=== PATIENT | female | born 1955 | race Caucasian/White ===

== ENCOUNTER → 2019-09-04 12:43 | Outpatient (BNVA) | payer MEDICARE, OTHER, SELFPAY | PROVIDERS: Family Provider Internal Medicine; PCP Internal Medicine; Visit Provider Obstetrics & Gynecology | DX: R87.619 Unspecified abnormal cytological findings in specimens from cervix uteri (principal) | CPT/HCPCS: 88175 ==

== ENCOUNTER → 2019-10-03 09:43 | Outpatient (BNVA) | payer MEDICARE, OTHER, SELFPAY | PROVIDERS: Family Provider Internal Medicine; PCP Internal Medicine; Visit Provider Obstetrics & Gynecology | DX: R87.619 Unspecified abnormal cytological findings in specimens from cervix uteri (principal) | CPT/HCPCS: 88305 ==

== ENCOUNTER → 2020-09-04 15:30 | Outpatient (BNVA) | payer MEDICARE, OTHER, SELFPAY | PROVIDERS: Family Provider Internal Medicine; PCP Internal Medicine; Visit Provider Obstetrics & Gynecology | DX: R87.619 Unspecified abnormal cytological findings in specimens from cervix uteri (principal) | CPT/HCPCS: 88175 ==

== ENCOUNTER → 2021-10-15 08:45 | Outpatient (BNVA) | payer MEDICARE, OTHER, SELFPAY | PROVIDERS: Family Provider Internal Medicine; PCP Internal Medicine; Visit Provider Obstetrics & Gynecology | DX: R87.619 Unspecified abnormal cytological findings in specimens from cervix uteri (principal); Z78.0 Asymptomatic menopausal state | CPT/HCPCS: 87624 ==

== ENCOUNTER 2021-11-04 14:04 | Outpatient (CLI) | payer MEDICARE, OTHER, SELFPAY ==
--- NOTE | 2021-11-04 14:00 | XR_ITS ---
WS: [email or web address] SCREENING DEXA SCAN [employer] CLINICAL INFORMATION: Z78.0 - Asymptomatic menopausal state COMPARISON: None. FINDINGS: The L1-L4 bone mineral density measures 0.988 g/cm2. This corresponds to a T score score of -1.6 and Z score of 0.4. Left femoral neck bone mineral density measures 0.844 g/cm2. This corresponds to a T score of -1.3 an d Z score of 0.3. Right femoral neck bone mineral density measures 0.837 g/cm2. This corresponds to a T score -1.4of an d Z score of 0.3. Mean femoral neck bone mineral density measures 0.841 g/cm2. This corresponds to a T score of -1.3 an d Z score of 0.3. XR/XR DEXA axial skeleton* [id number] IMPRESSION: Osteopenia lumbar spine. Osteopenia in the femoral necks. Patient's FRAX calculated 10 year probability for major osteoporotic fracture i s 11.0 % and osteoporotic hip fracture is 2.1%.
== END 2021-11-04 14:05 | disposition home or self-care (01) ==
LOC: RAD 14:06
PROVIDERS: Family Provider Internal Medicine; PCP Internal Medicine; Visit Provider Obstetrics & Gynecology
DX: Z78.0 Asymptomatic menopausal state (principal); M85.88 Other specified disorders of bone density and structure, other site
CPT/HCPCS: 77080

== ENCOUNTER 2023-03-26 11:15 | Outpatient (CLI) | payer MEDICARE, OTHER, SELFPAY ==
--- NOTE | 2023-03-26 11:21 | MM_ITS ---
WS: [email or web address] Bilateral screening 3D tomosynthesis digital mammogram, 03/26/2023 Clinical Data: SCREENING Comparison: 04/23/2021, 03/22/2020, 04/20/2019, 04/19/2018, 04/07/2017, 03/25/2016, 03/12/2015, 03/21/2014 , 03/15/2013. Findings: The breast parenchymal pattern shows fibroglandular tissue. No spiculated masses or clustered calcifi cations are seen. There are no secondary signs of carcinoma. Impression: 1. Negative bilateral mammogram unchanged. 2. Recommend annual screening mammograms. MM/[place] [id number] BIRADS: 1-Negative FOLLOW UP: 1 Year Follow-up The CAD typing checker was used.
== END 2023-03-26 11:16 | disposition home or self-care (01) ==
LOC: RAD 11:16
PROVIDERS: Family Provider Internal Medicine; PCP Internal Medicine; Visit Provider Internal Medicine
DX: Z12.31 Encounter for screening mammogram for malignant neoplasm of breast (principal)
CPT/HCPCS: 77063; 77067

== ENCOUNTER 2023-12-07 14:15 | Outpatient (CLI) | payer MEDICARE, OTHER, SELFPAY ==
--- NOTE | 2023-12-07 14:30 | XR_ITS ---
WS: [email or web address] SCREENING DEXA SCAN [facility] CLINICAL INFORMATION: Z78.0 - Asymptomatic menopausal state COMPARISON: 2021 FINDINGS: The L1-L4 bone mineral density measures 1.015 g/cm2. This corresponds to a T score score of -1.4 and Z score of 0.6. Left femoral neck bone mineral density measures 0.929 g/cm2. This corresponds to a T score of -0.6 an d Z score of 1.1. Right femoral neck bone mineral density measures 0.867 g/cm2. This corresponds to a T score -1.1of an d Z score of 0.6. Mean femoral neck bone mineral density measures 0.898 g/cm2. This corresponds to a T score of -0.9 an d Z score of 0.8. XR/XR DEXA axial skeleton* [id number] IMPRESSION: Osteopenia lumbar spine. Osteopenia femoral necks. Patient's FRAX calculated 10 year probability for major osteoporotic fracture i s 10.5% and osteoporotic hip fracture is 1.9%. Bone mineral density lumbar spine increased 2.7% Bone mineral density femoral necks increased 6.8%
== END 2023-12-07 14:16 | disposition home or self-care (01) ==
PROVIDERS: Family Provider Internal Medicine; PCP Internal Medicine; Visit Provider Nurse Practitioner Women's Health
DX: Z78.0 Asymptomatic menopausal state (principal); M85.89 Other specified disorders of bone density and structure, multiple sites
CPT/HCPCS: 77080; 82306; 84443

== ENCOUNTER 2024-04-07 08:47 | Outpatient (CLI) | payer MEDICARE, OTHER, SELFPAY ==
--- NOTE | 2024-04-07 08:50 | MM_ITS ---
WS: [email or web address] SCREENING DIGITAL BREAST TOMOSYNTHESIS MAMMOGRAM WITH CAD HISTORY: Z12.39 - Encounter for other screening for malignant neop... COMPARISON: 03/26/2023, 04/23/2021 Bilateral CC and MLO with tomosynthesis and synthetic mammography submitted. Computer aided detection analyzed. Breast composition: There are scattered areas of fibroglandular density. Irregular shaped high densit y mass with spiculated margins measuring 5 x 5 x 4 mm LEFT breast at 3:00 needs further evaluation. T he remaining breast are stable. No additional suspicious findings. MM/MM scr BI tomosynthesis [id number] IMPRESSION: BI-RADS: 0 - Incomplete: Need additional imaging evaluation. FOLLOW UP: Need Additional Imaging LEFT breast: Spot compression views (CC and MLO). True ML. Ultrasound to follow if abnormality persists.
== END 2024-04-07 08:48 | disposition home or self-care (01) ==
LOC: RAD 08:49
PROVIDERS: Family Provider Internal Medicine; PCP Internal Medicine; Visit Provider Internal Medicine
DX: Z12.31 Encounter for screening mammogram for malignant neoplasm of breast (principal); R92.323 Mammographic fibroglandular density, bilateral breasts; N63.21 Unspecified lump in the left breast, upper outer quadrant
CPT/HCPCS: 77063; 77067

== ENCOUNTER 2024-05-02 14:39 | Outpatient (CLI) | payer MEDICARE, SELFPAY ==
--- NOTE | 2024-05-02 15:00 | MM_ITS ---
WS: [email or web address] ADDITIONAL VIEWS LEFT MAMMOGRAM with tomosynthesis. LEFT BREAST ULTRASOUND HISTORY: R92.8 - Other abnormal and inconclusive findings on screening mammogram. COMPARISON: 04/07/2024, 03/26/2023 LEFT MAMMOGRAM: Spot compression views and true ML with tomosynthesis and sympathetic mammography. Spiculated high density mass persists in the upper outer quadrant of the LEFT breast near 2-3 o'clock . Mass measures 5 x 6 x 7 mm. Ultrasound to follow. LEFT BREAST ULTRASOUND 2-D and color Doppler imaging submitted. Hypoechoic mass with posterior shadowing in the LEFT breast at 2:00, 2 cm from the nipple. Mass measu res 0.6 x 0.6 x 0.4 cm. Minimal increased vascularity. Mass corresponds to the mammographic abnormali ty. MM/MM diag LT tomosynthesis [id number] IMPRESSION: BI-RADS: 4- Suspicious Finding - Biopsy Should be Considered FOLLOW UP: Biopsy Recommended Ultrasound-guided biopsy recommended of the LEFT breast mass at 2:00. Notified RISHABH Solomon at 05/02/2024 3:34 PM.
--- NOTE | 2024-05-02 15:30 | US_ITS ---
WS: [email or web address] ADDITIONAL VIEWS LEFT MAMMOGRAM with tomosynthesis. LEFT BREAST ULTRASOUND HISTORY: R92.8 - Other abnormal and inconclusive findings on screening mammogram. COMPARISON: 04/07/2024, 03/26/2023 LEFT MAMMOGRAM: Spot compression views and true ML with tomosynthesis and sympathetic mammography. Spiculated high density mass persists in the upper outer quadrant of the LEFT breast near 2-3 o'clock . Mass measures 5 x 6 x 7 mm. Ultrasound to follow. LEFT BREAST ULTRASOUND 2-D and color Doppler imaging submitted. Hypoechoic mass with posterior shadowing in the LEFT breast at 2:00, 2 cm from the nipple. Mass measu res 0.6 x 0.6 x 0.4 cm. Minimal increased vascularity. Mass corresponds to the mammographic abnormali ty. US/US breast LT limited* [id number] IMPRESSION: BI-RADS: 4- Suspicious Finding - Biopsy Should be Considered FOLLOW UP: Biopsy Recommended Ultrasound-guided biopsy recommended of the LEFT breast mass at 2:00. Notified RISHABH Solomon at 05/02/2024 3:34 PM.
== END 2024-05-02 14:40 | disposition home or self-care (01) ==
LOC: RAD 14:39
PROVIDERS: Family Provider Internal Medicine; PCP Internal Medicine; Visit Provider Nurse Practitioner Women's Health
DX: N63.21 Unspecified lump in the left breast, upper outer quadrant (principal)
CPT/HCPCS: 76642; 77061; G0279

== ENCOUNTER 2024-05-24 11:59 | Outpatient (CLI) | payer MEDICARE, OTHER, SELFPAY | END 2024-05-24 12:00 | disposition home or self-care (01) | PROVIDERS: PCP Nurse Practitioner Family; Visit Provider Nurse Practitioner Women's Health | DX: C50.512 Malignant neoplasm of lower-outer quadrant of left female breast (principal) | CPT/HCPCS: 19083; 88305 ==

== ENCOUNTER 2024-08-09 10:29 | Oncology outpatient (recurring) (ONCR) | payer MEDICARE, OTHER, SELFPAY ==
[2024-07-27 16:54] LABS: Basophils # 0.1 10^3/uL (0.0-0.1); Basophils % 0.8 %; Eosinophils # 0.3 10^3/uL (0.0-0.8); Eosinophils % 3.7 %; Hematocrit 41.3 % (36-47); Lymphocytes # 2.2 10^3/uL (0.8-4.8); Mean Corpuscular HGB Conc 32.7 g/dL (30-55); Mean Corpuscular Hemoglobin 29.7 pg (27-33); Mean Corpuscular Volume 90.8 fl (85-98); Mean Platelet Volume 10.9 fL (7.4-10.4); Monocytes # 0.8 10^3/uL (0.2-0.9); Monocytes % 10.5 %; Neutrophils # 3.81 10^3/uL (1.8-7.7); Neutrophils % 53.6 %; Nucleated Red Blood Cells % 0 %; Platelet Count 331 10^3/cmm (157-399); Red Blood Count 4.55 10^6/uL (3.85-5.65); Red Cell Distribution Width 13.8 % (12.1-15.1); White Blood Count 7.12 10^3/uL (3.29-11.43)
[2024-07-27 17:26] LABS: Alanine Aminotransferase 21 U/L (0-33); Albumin Level 4.4 g/dL (3.5-5.2); Alkaline Phosphatase 106 U/L (35-105); Aspartate Amino Transferase 19 U/L (0-32); Blood Urea Nitrogen 30 mg/dL (8-23); CA 15-3 14.5 U/mL (0-25); Calcium 9.5 mg/dL (8.5-10.5); Carbon Dioxide 21 mmol/L (22-29); Chloride 110 mmol/L (98-107); Globulin 2.6 g/dL (1.3-4.6); Glomerular Filtration Rate 98.8 mL/min (90-130); Glucose 101 mg/dL (65-115); Osmolality Calculated 300 mOsm/kg (285-295); Sodium 142 mmol/L (136-145); Total Bilirubin 0.5 mg/dL (0.15-1.2)
[2024-07-27 17:29] LABS: Anion Gap 15.1 (5-19); Lactate Dehydrogenase 219 U/L (135-214); Potassium 4.1 mmol/L (3.5-5.1)
--- NOTE | 2024-08-03 11:47 | N.ONRAD NP_ITS ---
Radiation Oncology New Patient Visit Patient: Tami Nesbitt MR#: [id number] : 1955> Age: 68> Sex: Female> Dictated by: Dr. 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 Chief Complaint / History of Present Illness: Patient is 68-year-old lady who on routine mammogram was found to have an abnormality. She initially had a biopsy in May and then subsequently had breast conserving surgery mid June. Margins were involved and she had a reexcision on July 14, 2024. The specimen was given the stage T1b N0. The ER/LA status was positive and H ER 2 was negative. She is here today just 3 weeks after surgery to discuss the radiation portion of her treatment. Current Medications: aspirin 81 mg PO DAILY atorvastatin 20 mg PO DAILY Allergies: No Known Allergies Medical History: Atypical glandular cells of undetermined significance (VINNY) on cervical Pap smear (~2019) ECC: no malignancy or dysplasia CXBX at 3:00 no dysplasia or malignancy performed by Jer AHUMADA (mitral valve prolapse) Elevated cholesterol Diagnosed in 2020 and is on medication managed by her primary care doctor No pertinent past medical history Denies diabetes, asthma, hypertension, seizures, DVT/PE. Her primary care provider is Dr. Merritt. Surgical History: history of throat surgery (~1993) some sort of mass in her neck was removed. It was benign. Family History: Family/Other Ovarian cancer Maternal aunt, diagnosed at age 45 Father Heart disease Hypertension Sister Endometrial cancer diagnosed at age 61 Grandfather Stroke Paternal Grandmother Stroke Paternal Mother Thyroid disease Denies family history of Cervical cancer Colon cancer DVT (deep venous thrombosis) Breast cancer Pulmonary embolism Social History: Smoking and tobacco/nicotine status: never used tobacco/nicotine Current Complaints / Review of Systems: . Vital Signs: Performed on 08/03/2024 11:07 AM BMI - 22.717 kg/m2, Height - 62 in, Weight - 124.2 lbs, Temperature - 96.2 f, Pulse - 70 /min, Respiration - 18 /min, O2 Sat - 100 %, Pain - 0, Fatigue - 0 and BP - 129/ 81 mm(hg). Physical Exam: General: Patient is in no apparent distress. She is accompanied by her daughters HEENT: Normocephalic atraumatic. Pupils are equal, sclera clear, extraocular muscles intact Pulmonary: Respiratory rate is regular nonlabored Breast: The left breast appears to have a fairly significant hematoma and surrounding ecchymoses. The incision itself is good without any erythema or drainage. Abdomen: Flat with minimal adipose tissue Extremities: Without significant lymphedema or edema Neurological: Alert and orient x 3. Gait and speech within normal limits Psych: Affect appropriate for current situation Performance Status: 90 Pathology: Impression: Stage I infiltrating ductal carcinoma the breast ER/LA positive H ER 2 negative grade 1-2 Plan: I reviewed with Mrs. Nesbitt the use of radiation and breast cancer patients. We discussed the uses of breast conserving therapy and the combination of radiation and surgery. I reviewed with her the various protocols we now have for breast cancer patients ranging from 4 weeks down to once a week for 5 weeks. We discussed the pros and cons of the above protocols as well as the risks and side effects which basically are all the same. We reviewed the simulation process. We discussed the risks and side effects both acute and long-term. This point she is agreed to proceed. She is a little early to start with any treatments especially with the hematoma that she has. Will go ahead and wait another week or 2 to have her return for simulation and begin her treatments thereafter. She will come once a week for 5 weeks with treatment to the whole breast. Signed by: 08/03/2024 11:46:51 AM <<Signature on File>> Time spent on patient:45 CPT Code: * CPT Code: *
== END 2024-08-11 23:59 | disposition home or self-care (01) ==
PROVIDERS: PCP Nurse Practitioner Family; Visit Provider Internal Medicine
DX: C50.912 Malignant neoplasm of unspecified site of left female breast (principal); Z17.0 Estrogen receptor positive status [ER+]; M85.80 Other specified disorders of bone density and structure, unspecified site; Z78.0 Asymptomatic menopausal state; Z79.899 Other long term (current) drug therapy
CPT/HCPCS: 36415; 80053; 83615; 85025; 86300; 99204; 99205; 99213

== ENCOUNTER 2024-09-05 14:47 | Oncology outpatient (recurring) (ONCR) | payer MEDICARE, OTHER, SELFPAY ==
--- NOTE | 2024-08-29 15:56 | ONCRAD TMN_ITS ---
Radiation Oncology Weekly Treatment Management Patient: Laz Mckeon MR#: [id number] : 1955> Attending Physician: Dr. Jailene Bond Date of Service: 08/29/2024 Fractions: 1 out of 5 Referring Physician(s) : Diagnosis: C50.912 - Malignant neoplasm of unspecified site of left female breast, Diagnosed 08/03/2024 (Active) Radiotherapy to date: Course: L breast, Treatment Site: L Breast, Ref. ID: CTV, Energy: 15X/6X, Dose/Fx (cGy): 570, #Fx: / 5, Dose Correction (cGy): 0, Total Dose Delivered (cGy): 570, Start Date: 08/29/2024, Elapsed Days: 0 Reason for visit: The patient is being seen today as part of their regularly scheduled weekly on treatment visits to assess for acute toxicities from radiotherapy. Review of Systems: Patient had no questions or concerns. She is still considering whether she wants to take the Arimidex Vital Signs: Performed on 08/29/2024 3:35 PM BMI - 22.131 kg/m2, Height - 62 in, Weight - 121 lbs, Temperature - 96.9 f, Pulse - 75 /min, Respiration - 18 /min, O2 Sat - 100 %, Pain - 0, Fatigue - 0 and BP - 135/ 78 mm(hg). Physical Exam: No changes on exam Imaging: Radiation therapy imaging related to accurate target localization (i.e. KV, MV and CBCT) was reviewed. Appropriate changes, if any, were made to ensure treatment accuracy. Plan: Will continue with her treatments as planned Signed by: Dr. Jailene Bond 08/29/2024 3:55:10 PM
--- NOTE | 2024-09-05 15:24 | ONCRAD TMN_ITS ---
Radiation Oncology Weekly Treatment Management Patient: Tami Nesbitt MR#: [id number] : 1955 Attending Physician: Dr. Jailene Bond Date of Service: 09/05/2024 Fractions 2 out of 5 Referring Physician(s) : Diagnosis: C50.912 - Malignant neoplasm of unspecified site of left female breast, Diagnosed 08/03/2024 (Active) Radiotherapy to date: Course: L breast, Treatment Site: L Breast, Ref. ID: CTV, Energy: 15X/6X, Dose/Fx (cGy): 570, #Fx: 2 / 5, Dose Correction (cGy): 0, Total Dose Delivered (cGy): 1,140, Start Date: 08/29/2024, Elapsed Days: 7 Reason for visit: The patient is being seen today as part of their regularly scheduled weekly on treatment visits to assess for acute toxicities from radiotherapy. Review of Systems: Patient denies complaints Vital Signs: Performed on 09/05/2024 2:57 PM BMI - 22.68 kg/m2, Height - 62 in, Weight - 124 lbs, Temperature - 97.4 f, Pulse - 66 /min, Respiration - 16 /min, O2 Sat - 96 %, Pain - 0, Fatigue - 0 and BP - 120/ 73 mm(hg). Physical Exam: No changes on exam Imaging: Radiation therapy imaging related to accurate target localization (i.e. KV, MV and CBCT) was reviewed. Appropriate changes, if any, were made to ensure treatment accuracy. Plan: Will continue with her treatments as planned Signed by: Dr. Jailene Bond 09/05/2024 3:23:37 PM
== END 2024-09-11 23:59 | disposition home or self-care (01) ==
PROVIDERS: PCP Nurse Practitioner Family; Visit Provider Radiology Radiation Oncology
DX: C50.912 Malignant neoplasm of unspecified site of left female breast (principal); Z17.0 Estrogen receptor positive status [ER+]; M85.80 Other specified disorders of bone density and structure, unspecified site; Z78.0 Asymptomatic menopausal state
CPT/HCPCS: 77290; 77295; 77300; 77334; 77387; 77412; 99024

== ENCOUNTER 2024-10-04 13:45 | Oncology outpatient (recurring) (ONCR) | payer MEDICARE, OTHER, SELFPAY ==
--- NOTE | 2024-09-12 15:36 | ONCRAD TMN_ITS ---
Radiation Oncology Weekly Treatment Management Patient: Tami Nesbitt MR#: [id number] : 1955 Attending Physician: Dr. Jailene Bond Date of Service: 09/12/2024 Fractions: 3 out of 5 Referring Physician(s) : Diagnosis: C50.912 - Malignant neoplasm of unspecified site of left female breast, Diagnosed 08/03/2024 (Active) Radiotherapy to date: Course: L breast, Treatment Site: L Breast, Ref. ID: CTV, Energy: 15X/6X, Dose/Fx (cGy): 570, #Fx: 3 / 5, Dose Correction (cGy): 0, Total Dose Delivered (cGy): 1,710, Start Date: 08/29/2024, Elapsed Days: 14 Reason for visit: The patient is being seen today as part of their regularly scheduled weekly on treatment visits to assess for acute toxicities from radiotherapy. Review of Systems: Patient denies any complaints Vital Signs: Performed on 09/12/2024 2:43 PM BMI - 22.717 kg/m2, Height - 62 in, Weight - 124.2 lbs, Temperature - 96.8 f, Pulse - 69 /min, Respiration - 16 /min, O2 Sat - 100 %, Pain - 0, Fatigue - 0 and BP - 129/ 71 mm(hg). Physical Exam: She still has ecchymoses from her surgery but there are no skin changes Imaging: Radiation therapy imaging related to accurate target localization (i.e. KV, MV and CBCT) was reviewed. Appropriate changes, if any, were made to ensure treatment accuracy. Plan: Will continue with treatments as planned Signed by: Dr. Jailene Bond 09/12/2024 3:35:55 PM
--- NOTE | 2024-09-19 15:25 | ONCRAD TMN_ITS ---
Radiation Oncology Weekly Treatment Management Patient: Tami Nesbitt MR#: [id number] : 1955 Attending Physician: Dr. Edis Tellez Date of Service: 09/19/2024 Referring Physician(s) : Diagnosis: C50.912 - Malignant neoplasm of unspecified site of left female breast, Diagnosed 08/03/2024 (Active) Radiotherapy to date: Course: L breast, Treatment Site: L Breast, Ref. ID: CTV, Energy: 15X/6X, Dose/Fx (cGy): 570, #Fx: 4 / 5, Dose Correction (cGy): 0, Total Dose Delivered (cGy): 2,280, Start Date: 08/29/2024, Elapsed Days: 21 Reason for visit: The patient is being seen today as part of their regularly scheduled weekly on treatment visits to assess for acute toxicities from radiotherapy. 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 No complaints. Vital Signs: Performed on 09/19/2024 3:01 PM BMI - 22.717 kg/m2, Height - 62 in, Weight - 124.2 lbs, Temperature - 97.2 f, Pulse - 70 /min, Respiration - 16 /min, O2 Sat - 98 %, Pain - 0, Fatigue - 0 and BP - 131/ 73 mm(hg). Physical Exam: Ecchymosis lateral to areola of left breast. No erythema Imaging: Radiation therapy imaging related to accurate target localization (i.e. KV, MV and CBCT) was reviewed. Appropriate changes, if any, were made to ensure treatment accuracy. Plan: Good tolerance of treatment. Complete treatment next week. Signed by: Dr. Edis Tellez 09/19/2024 3:24:32 PM
--- NOTE | 2024-09-26 15:45 | N.ONRD TS_ITS ---
Radiation Oncology Treatment Summary/ Treatment Management Patient: Laz>Tami> MR#: [id number] : 1955> Age: 69> Sex: Female Dictated by: Rudolph Toscano Date of Service: 09/26/2024 Referring Physician(s) : Diagnosis: C50.912 - Malignant neoplasm of unspecified site of left female breast, Diagnosed 08/03/2024 (Active) Radiotherapy to Date: Course: L breast, Treatment Site: L Breast, Ref. ID: CTV, Energy: 15X/6X, Dose/Fx (cGy): 570, #Fx: 5 / 5, Dose Correction (cGy): 0, Total Dose Delivered (cGy): 2,850, Start Date: 08/29/2024, End Date: 09/26/2024, Elapsed Days: 28 Clinical Summary: The patient tolerated RT well. Mild erythema that she uses creams for. There is a lateral bruise/tattooing present with no significant pain. Plan: End of treatment today. Continue on the above medication until the skin reaction resolves. Follow up in one month. To see Dr. Sanabria next week regarding hormonal therapy. Signed by: Rudolph Toscano>09/26/2024 3:43:31 PM <<Signature on File>>
[2024-10-04 14:03] LABS: Basophils # 0.1 10^3/uL (0.0-0.1); Basophils % 0.9 %; Eosinophils # 0.3 10^3/uL (0.0-0.8); Eosinophils % 3.6 %; Hematocrit 38.4 % (36-47); Lymphocytes # 1.9 10^3/uL (0.8-4.8); Lymphocytes % 28.1 %; Mean Corpuscular HGB Conc 32.8 g/dL (30-55); Mean Corpuscular Hemoglobin 29.8 pg (27-33); Mean Corpuscular Volume 90.8 fl (85-98); Mean Platelet Volume 11.2 fL (7.4-10.4); Monocytes # 0.7 10^3/uL (0.2-0.9); Monocytes % 10.6 %; Neutrophils # 3.89 10^3/uL (1.8-7.7); Neutrophils % 56.7 %; Nucleated Red Blood Cells % 0 %; Platelet Count 252 10^3/cmm (157-399); Red Blood Count 4.23 10^6/uL (3.85-5.65); Red Cell Distribution Width 13.2 % (12.1-15.1); White Blood Count 6.87 10^3/uL (3.29-11.43)
[2024-10-04 14:19] LABS: Alanine Aminotransferase 16 U/L (0-33); Albumin Level 4.2 g/dL (3.5-5.2); Alkaline Phosphatase 82 U/L (35-105); Anion Gap 15.7 (5-19); Aspartate Amino Transferase 17 U/L (0-32); Blood Urea Nitrogen 24 mg/dL (8-23); Calcium 9.3 mg/dL (8.5-10.5); Carbon Dioxide 20 mmol/L (22-29); Chloride 107 mmol/L (98-107); Globulin 2.6 g/dL (1.3-4.6); Glucose 98 mg/dL (65-115); Osmolality Calculated 292 mOsm/kg (285-295); Potassium 3.7 mmol/L (3.5-5.1); Sodium 139 mmol/L (136-145); Total Bilirubin 0.6 mg/dL (0.15-1.2); Total Protein 6.8 g/dL (6.6-8.7)
[2024-10-04 14:59] LABS: Lactate Dehydrogenase 210 U/L (135-214)
== END 2024-10-11 23:59 | disposition home or self-care (01) ==
PROVIDERS: Internal Medicine; PCP Nurse Practitioner Family; Visit Provider Radiology Radiation Oncology
DX: Z53.9 Procedure and treatment not carried out, unspecified reason; C50.912 Malignant neoplasm of unspecified site of left female breast; Z17.0 Estrogen receptor positive status [ER+]; M85.80 Other specified disorders of bone density and structure, unspecified site; Z78.0 Asymptomatic menopausal state; Z92.3 Personal history of irradiation; Z79.811 Long term (current) use of aromatase inhibitors
CPT/HCPCS: 36415; 77336; 77387; 77412; 80053; 83615; 85025; 99024; 99213

== ENCOUNTER 2024-11-08 11:30 | Oncology outpatient (recurring) (ONCR) | payer MEDICARE, OTHER, SELFPAY ==
--- NOTE | 2024-10-25 15:46 | ONCRAD EPV_ITS ---
Radiation Oncology Established Patient Visit Patient: Laz Garrett [id number] : 1955> Age: 69> Sex: Female> Dictated by: Rudolph Toscano Date of Service: 10/25/2024 Referring Physician(s) : Diagnosis: C50.912 - Malignant neoplasm of unspecified site of left female breast, Diagnosed 08/03/2024 (Active) Radiotherapy to Date: Course: L breast, Treatment Site: L Breast, Ref. ID: CTV, Energy: 15X/6X, Dose/Fx (cGy): 570, #Fx: 5 / 5, Dose Correction (cGy): 0, Total Dose Delivered (cGy): 2,850, Start Date: 08/29/2024 , End Date: 09/26/2024, Elapsed Days: 28 Current History: This is a pleasant 69-year-old female who is now 1 month since completion of treatment to the left breast. She states [place] lymph node is resolving some. She denies any problems at this time. She sees Dr. Sanabria in 2 weeks. Current Medications: Added letrozole on 10/04/2024 Allergies: No Known Allergies Current Complaints / Review of Systems: As above Vital Signs: Performed on 10/25/2024 3:15 PM BMI - 22.643 kg/m2, Height - 62 in, Weight - 123.8 lbs, Temperature - 96.7 f, Pulse - 70 /min, Respiration - 16 /min, O2 Sat - 95 % (low) and BP - 120/ 77 mm(hg). Physical Exam: General: Alert and oriented x 3. No acute distress. HEENT: Normocephalic, atraumatic. Extraocular Movements Intact: Pupils Equal, Round, Reactive to Light and Accommodation: Sclerae anicteric. Oral cavity is clear without lesions, masses or ulcers. NECK: Supple without supraclavicular or jugular lymphadenopathy. LUNGS: Clear to auscultation bilaterally without rales, rhonchi or wheeze. HEART: Regular rate and rhythm, normal S1 and S2 without murmur, gallop or rub. BREASTS: Right breast without masses. Left breast has still some hyper pigmentation. Scar well-healed without nodularity. MUSCULOSKELETAL: No tenderness or percussion pain over the axial skeleton, scapulae or pelvis. ABDOMEN: Soft, nontender, nondistended without masses or organomegaly. Bowell sounds are present. EXTREMITIES: No peripheral edema is identified. Limited motor and sensory examination are grossly intact and symmetric bilaterally. NEUROLOGIC: Cranial nerves II ???XII are grossly intact. Normal sensation, strength 5/5 in all extremities, normal gait, no ataxia. Performance Status: KPS 90 Lab: None pending. Pathology: Primary, c50.912 - malignant neoplasm of unspecified site of left female breast, Diagnosed 08/03/2024 (active) . Imaging: See HPI Impression: Left breast IDC status completion XRT adjuvantly. PLAN: Patient to see Dr. Sanabria in 2 weeks Patient will follow up with Dr. Sanabria and her surgeon and we will see her in the future if specifically requested. Continue letrozole without noted side effects. Signed by: 10/25/2024 3:45:55 PM <<Signature on File>> Time spent with patient: 15 minutes no charge-Global CPT Code: CPT Code:
[2024-11-08 11:58] LABS: Basophils # 0.1 10^3/uL (0.0-0.1); Basophils % 0.8 %; Eosinophils # 0.2 10^3/uL (0.0-0.8); Hematocrit 41.2 % (36-47); Lymphocytes # 1.9 10^3/uL (0.8-4.8); Lymphocytes % 28.9 %; Mean Corpuscular HGB Conc 32.8 g/dL (30-55); Mean Corpuscular Hemoglobin 29.9 pg (27-33); Mean Corpuscular Volume 91.2 fl (85-98); Mean Platelet Volume 10.6 fL (7.4-10.4); Monocytes # 0.8 10^3/uL (0.2-0.9); Monocytes % 11.3 %; Neutrophils # 3.68 10^3/uL (1.8-7.7); Neutrophils % 55.5 %; Nucleated Red Blood Cells % 0 %; Platelet Count 256 10^3/cmm (157-399); Red Blood Count 4.52 10^6/uL (3.85-5.65); Red Cell Distribution Width 13.2 % (12.1-15.1); White Blood Count 6.62 10^3/uL (3.29-11.43)
[2024-11-08 12:15] LABS: Alanine Aminotransferase 18 U/L (0-33); Albumin Level 4.4 g/dL (3.5-5.2); Alkaline Phosphatase 80 U/L (35-105); Aspartate Amino Transferase 19 U/L (0-32); Blood Urea Nitrogen 18 mg/dL (8-23); Calcium 9.9 mg/dL (8.5-10.5); Carbon Dioxide 22 mmol/L (22-29); Chloride 105 mmol/L (98-107); Creatinine Clr Calc Pharmacy 53.5161; Globulin 2.9 g/dL (1.3-4.6); Glucose 93 mg/dL (65-115); Lactate Dehydrogenase 211 U/L (135-214); Osmolality Calculated 294 mOsm/kg (285-295); Sodium 141 mmol/L (136-145); Total Protein 7.3 g/dL (6.6-8.7)
== END 2024-11-11 23:59 | disposition home or self-care (01) ==
PROVIDERS: Internal Medicine; PCP Nurse Practitioner Family; Visit Provider Radiology Radiation Oncology
DX: Z53.9 Procedure and treatment not carried out, unspecified reason; C50.912 Malignant neoplasm of unspecified site of left female breast; Z17.0 Estrogen receptor positive status [ER+]; M85.80 Other specified disorders of bone density and structure, unspecified site; Z78.0 Asymptomatic menopausal state; Z92.3 Personal history of irradiation; Z79.811 Long term (current) use of aromatase inhibitors
CPT/HCPCS: 36415; 80053; 83615; 85025; 99024; 99214

== ENCOUNTER → 2024-12-06 09:50 | Outpatient (BNVA) | payer MEDICARE, OTHER, SELFPAY | PROVIDERS: Family Provider Internal Medicine; PCP Internal Medicine; Visit Provider Nurse Practitioner Women's Health | DX: Z01.419 Encounter for gynecological examination (general) (routine) without abnormal findings (principal); M85.80 Other specified disorders of bone density and structure, unspecified site; Z78.0 Asymptomatic menopausal state; E78.00 Pure hypercholesterolemia, unspecified | CPT/HCPCS: 82306; 84443; 87624 ==

== ENCOUNTER 2025-02-07 08:38 | Oncology outpatient (recurring) (ONCR) | payer MEDICARE, OTHER, SELFPAY ==
[2025-02-07 09:01] LABS: Hematocrit 40.7 % (36-47); Hemoglobin 13.30 g/dL (11.27-16.99); Mean Corpuscular HGB Conc 32.7 g/dL (30-55); Mean Corpuscular Hemoglobin 29.6 pg (27-33); Mean Corpuscular Volume 90.6 fl (85-98); Nucleated Red Blood Cells % 0 %; Platelet Count 254 10^3/cmm (157-399); Red Blood Count 4.49 10^6/uL (3.85-5.65); White Blood Count 6.02 10^3/uL (3.29-11.43)
[2025-02-07 09:16] LABS: Alanine Aminotransferase 21 U/L (0-33); Albumin Level 4.4 g/dL (3.5-5.2); Anion Gap 17.2 (5-19); Aspartate Amino Transferase 26 U/L (0-32); Blood Urea Nitrogen 16 mg/dL (8-23); Calcium 9.6 mg/dL (8.5-10.5); Carbon Dioxide 21 mmol/L (22-29); Chloride 104 mmol/L (98-107); Creatinine Clr Calc Pharmacy 53.7010; Glucose 114 mg/dL (65-115); Osmolality Calculated 288 mOsm/kg (285-295); Potassium 4.2 mmol/L (3.5-5.1); Sodium 138 mmol/L (136-145); Total Protein 7.4 g/dL (6.6-8.7)
[2025-02-07 09:17] LABS: Alkaline Phosphatase 85 U/L (35-105); Globulin 3.0 g/dL (1.3-4.6)
== END 2025-02-11 23:59 | disposition home or self-care (01) ==
PROVIDERS: Nurse Practitioner Family; Family Provider Internal Medicine; PCP Internal Medicine; Visit Provider Radiology Radiation Oncology
DX: Z08 Encounter for follow-up examination after completed treatment for malignant neoplasm (principal); Z85.3 Personal history of malignant neoplasm of breast; M85.80 Other specified disorders of bone density and structure, unspecified site; Z78.0 Asymptomatic menopausal state; Z92.3 Personal history of irradiation; Z79.899 Other long term (current) drug therapy
CPT/HCPCS: 36415; 80053; 83615; 85025; 99214

== ENCOUNTER 2025-04-09 07:52 | Outpatient (CLI) | payer MEDICARE, OTHER, SELFPAY ==
--- NOTE | 2025-04-09 07:58 | MM_ITS ---
WS: [email or web address] DIAGNOSTIC BILATERAL DIGITAL BREAST TOMOSYNTHESIS MAMMOGRAPHY WITH CAD HISTORY: C50.912 - Malignant neoplasm of unspecified site of left ..., History of radiation and lumpectomy. COMPARISON: 04/07/2024, 05/02/2024, 04/23/2021 TECHNIQUE: Bilateral craniocaudad, mediolateral oblique, and mediolateral views are submitted with tomosynthesis and SM. Computer aided detection utilized. Breast composition: There are scattered areas of fibroglandular density. Increased density and trabecular thickening throughout the entire LEFT breast from prior recent radiation. Postsurgical clips in the upper outer quadrant LEFT breast from the lumpectomy. At the lumpectomy site there is an area of increased density which is all probably postsurgical. No nipple retraction. No suspicious calcifications in either breast. MM/MM diag BI tomosynthesis [id number] IMPRESSION: BI-RADS: 3 - Probably Benign. FOLLOW UP: 6 Month Follow-up Recommended follow-up LEFT breast mammogram in 6 months due to the changes from radiation and post surgery to ensure normal involution.
== END 2025-04-09 07:53 | disposition home or self-care (01) ==
LOC: RAD 07:53
PROVIDERS: Family Provider Internal Medicine; PCP Internal Medicine; Visit Provider Nurse Practitioner
DX: C50.912 Malignant neoplasm of unspecified site of left female breast (principal); C50.412 Malignant neoplasm of upper-outer quadrant of left female breast
CPT/HCPCS: 77062; G0279

== ENCOUNTER 2025-05-02 10:59 | Oncology outpatient (recurring) (ONCR) | payer MEDICARE, OTHER, SELFPAY ==
[2025-05-02 11:20] LABS: Hematocrit 40.5 % (36-47); Hemoglobin 13.30 g/dL (11.27-16.99); Mean Corpuscular HGB Conc 32.8 g/dL (30-55); Mean Corpuscular Hemoglobin 29.8 pg (27-33); Mean Corpuscular Volume 90.6 fl (85-98); Nucleated Red Blood Cells % 0 %; Platelet Count 261 10^3/cmm (157-399); Red Blood Count 4.47 10^6/uL (3.85-5.65); White Blood Count 7.49 10^3/uL (3.29-11.43)
[2025-05-02 11:47] LABS: Alanine Aminotransferase 18 U/L (0-33); Albumin Level 4.2 g/dL (3.5-5.2); Alkaline Phosphatase 78 U/L (35-105); Anion Gap 14.3 (5-19); Aspartate Amino Transferase 16 U/L (0-32); Blood Urea Nitrogen 17 mg/dL (8-23); Calcium 9.5 mg/dL (8.5-10.5); Carbon Dioxide 22 mmol/L (22-29); Chloride 109 mmol/L (98-107); Creatinine Clr Calc Pharmacy 53.7010; Globulin 2.7 g/dL (1.3-4.6); Glucose 101 mg/dL (65-115); Osmolality Calculated 294 mOsm/kg (285-295); Potassium 4.3 mmol/L (3.5-5.1); Sodium 141 mmol/L (136-145); Total Protein 6.9 g/dL (6.6-8.7)
== END 2025-05-13 23:59 | disposition home or self-care (01) ==
PROVIDERS: Nurse Practitioner Family; Family Provider Internal Medicine; PCP Internal Medicine; Visit Provider Radiology Radiation Oncology
DX: Z08 Encounter for follow-up examination after completed treatment for malignant neoplasm (principal); Z85.3 Personal history of malignant neoplasm of breast; M85.80 Other specified disorders of bone density and structure, unspecified site; Z78.0 Asymptomatic menopausal state; Z92.3 Personal history of irradiation; Z79.811 Long term (current) use of aromatase inhibitors; L23.7 Allergic contact dermatitis due to plants, except food
CPT/HCPCS: 36415; 80053; 82306; 85025; 99213

== ENCOUNTER 2025-05-23 08:25 | Outpatient (CLI) | payer MEDICARE, OTHER, SELFPAY ==
--- NOTE | 2025-05-23 08:29 | CT_ITS ---
WS: [email or web address] CT chest w con* [id number] HISTORY: SOLITARY PULMONARY NODULE TECHNIQUE: Axial imaging performed through the thorax. Coronal and sagittal reformats are submitted. All CT scans at [facility] use at least one of these dose optimization techniques: automated exposure control; mA and/or kV adjustment per patient size (includes targeted exams where dose is matched to clinical indication); or iterative reconstruction. CONTRAST: Omnipaque 350; 100 mL IV. DLP: 227.01 mGy.cm COMPARISON: None available. Lungs and central airway: Lungs are well-aerated. Mild interstitial thickening in the periphery of the lungs. There are a few calcified benign granulomata. No noncalcified mass or nodule identified. Mild RIGHT apical pleural thickening. Pleura: Normal. No pleural effusion. Heart and pericardium: Normal size heart with no pericardial effusion. Mediastinum and mervat: No mediastinum or hilar adenopathy. Vessels: Mild atherosclerosis aorta. Normal size aorta and pulmonary artery. Chest wall and lower neck: RIGHT thyroid nodule is 7 mm. Lumpectomy site LEFT breast identified with adjacent clips. Upper abdomen: Normal. Osseous structures: No destructive process. CT/CT chest w con* [id number] IMPRESSION: 1. No pulmonary mass or noncalcified nodule. 2. There are a few scattered benign calcified granulomata present within the l ungs. 3. No mediastinal or hilar adenopathy. 4. 7 mm RIGHT thyroid nodule. 5. Mild atherosclerosis aorta.
[2025-05-23] MEDS: iohexol 350 mg/mL 500 mL Btl (per mL) IV (08:50)
== END 2025-05-23 08:26 | disposition home or self-care (01) ==
LOC: RAD 08:26
PROVIDERS: PCP Nurse Practitioner Family; Visit Provider Nurse Practitioner Family
DX: R91.1 Solitary pulmonary nodule (principal); J84.10 Pulmonary fibrosis, unspecified; I70.0 Atherosclerosis of aorta
CPT/HCPCS: 71260